=== PATIENT | female | born 1980 | race African-American/Black ===

== ENCOUNTER 2019-09-05 17:37 | Emergency (ER) | payer MEDICAID ==
[~2019-09-05] VITALS: Ht 162.6 cm; Wt 67.0 kg
[2019-09-05] MEDS ORDERED: LORAZEPAM 0.5MG TABLET PO ONE (19:45)
[2019-09-05 21:01] LABS: CLARITY URINE CLEAR (CLEAR); COLOR URINE YELLOW (YELLOW); KETONES URINE NEGATIVE (NEGATIVE); LEUKOCYTE ESTERASE URINE NEGATIVE (NEGATIVE); NITRITE URINE NEGATIVE (NEGATIVE); OCCULT BLOOD URINE NEGATIVE (NEGATIVE); PH URINE 6.5 (4.5-8.0); PROTEIN URINE NEGATIVE (NEGATIVE); SPECIFIC GRAVITY URINE 1.003 (1.005-1.030); UROBILINOGEN URINE 0.2 E.U./dL (0.2-1.0)
[2019-09-05 21:12] LABS: *BARBITURATES SCREEN URINE NEGATIVE (NEGATIVE); *BENZODIAZEPINES SCREEN URINE NEGATIVE (NEGATIVE)
[2019-09-05 21:13] LABS: *AMPHETAMINES SCREEN URINE NEGATIVE (NEGATIVE); CANNABINOID URINE SCREEN NEGATIVE (NEGATIVE); METHADONE URINE SCREEN NEGATIVE (NEGATIVE); OPIATES URINE SCREEN NEGATIVE (NEGATIVE); PHENCYCLIDINE URINE SCREEN NEGATIVE (NEGATIVE)
[2019-09-05 21:17] LABS: *COCAINE SCREEN URINE PRESUMTIVE POSITIVE (NEGATIVE)
[2019-09-05 21:24] VITALS: BP 130/70
== END 2019-09-05 23:06 | disposition home or self-care (01) ==
LOC: ER 17:37
DX: F43.0 Acute stress reaction (principal); F41.9 Anxiety disorder, unspecified; R00.2 Palpitations; F14.10 Cocaine abuse, uncomplicated
CPT/HCPCS: 80305; 81003; 81025; 82962; 93005; 99284

== ENCOUNTER 2020-08-22 15:46 | Emergency (ER) | payer MEDICAID ==
[~2020-08-22] VITALS: Ht 162.6 cm; Wt 65.0 kg
[2020-08-22] MEDS ORDERED: ACETAMINOPHEN 325MG TABLET PO ONE (17:00)
[2020-08-22] MEDS ORDERED: ONDANSETRON 4MG ODT PO ONE (17:00)
[2020-08-22] MEDS ORDERED: ACET-2708 MT (17:59)
[2020-08-22 18:33] VITALS: BP 132/87
== END 2020-08-22 18:24 | disposition home or self-care (01) ==
LOC: ER 15:46
DX: U07.1 COVID-19 (principal); R05 Cough; M79.10 Myalgia, unspecified site; R06.02 Shortness of breath; R11.0 Nausea; F41.9 Anxiety disorder, unspecified
CPT/HCPCS: 71045; 99284; C9803; Q0162; U0003; U0005

== ENCOUNTER 2021-09-10 03:59 | Emergency (ER) | payer MEDICAID, OTHER ==
[~2021-09-10] VITALS: Ht 162.6 cm; Wt 80.0 kg
[~2021-09-10 03:59] MED LIST: ACET-2708 MT
[2021-09-10] MEDS ORDERED: KETOROLAC 60MG/2ML VIAL IM ONE (05:30)
[2021-09-10] MEDS ORDERED: MORPHINE SULFATE 10 MG/ML CPJ IM ONE (07:00)
[2021-09-10] MEDS ORDERED: IBUP-2029 MT (07:14)
[2021-09-10] MEDS ORDERED: HYDR-4001 MT (07:14)
[2021-09-10] MEDS ORDERED: MORPHINE SULFATE 10 MG/ML CPJ IM NR (09:00)
[2021-09-10 10:00] VITALS: BP 112/66
== END 2021-09-10 10:15 | disposition home or self-care (01) ==
LOC: ER 03:59
DX: S82.091A Other fracture of right patella, initial encounter for closed fracture (principal); W50.2XXA Accidental twist by another person, initial encounter; Y93.89 Activity, other specified; Y92.89 Other specified places as the place of occurrence of the external cause; Y99.8 Other external cause status; F41.9 Anxiety disorder, unspecified; Z79.899 Other long term (current) drug therapy
CPT/HCPCS: 73560; 96372; 99285; J1885; J2270; L1830